=== PATIENT | male | born 1980 | race Caucasian/White ===

== ENCOUNTER 2018-11-24 16:07 | Emergency (ER) | payer SELFPAY ==
[2018-11-24 16:59] LABS: Absolute Lymphocytes (CBC) 1.6 K/uL (0.7-4.9); Absolute Monocytes 0.6 K/uL (0.1-1.3); Absolute Neutrophil 3.9 K/uL (1.8-8.0); Basophils % 0.8 % (0-1.3); Eosinophils % 1.1 % (0-4.4); Hematocrit 45.9 % (39.6-49.0); MPV 8.2 fL (7.6-11.3); Monocytes % 10.3 % (3.3-12.3); RBC Red Blood Cell Count 5.28 M/uL (4.33-5.43)
[2018-11-24] MEDS ORDERED: LORazepam 2 MG/ML VIAL ONE (17:03)
[2018-11-24 17:04] LABS: Protime INR 1.05
[2018-11-24] MEDS ORDERED: ONDANSETRON 4 MG/2 ML VIAL ONE (17:04)
[2018-11-24] MEDS ORDERED: FAMOTIDINE 20 MG/2 ML VIAL IV ONE (17:04)
[2018-11-24] MEDS ORDERED: NA CHLORIDE 0.9% 1,000 ML ONE (17:13)
--- NOTE | 2018-11-24 17:25 | RAD REPORT ---
EXAM DESCRIPTION: RAD - Chest Single View - 11/24/2018 5:18 pm CLINICAL HISTORY: DYSPNEA Chest pain. COMPARISON: <Comparisons> FINDINGS: Portable technique limits examination quality. The lungs are grossly clear. The heart is normal in size. Stent is present in the thoracic aorta. IMPRESSION: No acute intrathoracic process suspected.
[2018-11-24 17:44] LABS: ALT/SGPT 20 U/L (12-78); AST/SGOT 16 U/L (15-37); Albumin 4.2 g/dL (3.4-5.0); Alkaline Phosphatase 71 U/L (45-117); BUN Blood Urea Nitrogen 15 mg/dL (7-18); Bicarbonate 23 mmol/L (21-32); Bilirubin Direct 0.2 mg/dL (0-0.2); Bilirubin Total 0.5 mg/dL (0.2-1.0); Glucose Level 112 mg/dL (74-106); Lipase 183 U/L (73-393); Magnesium 2.4 mg/dL (1.8-2.4); NT PRO-BNP 20 pg/mL (<125); Potassium 3.3 mmol/L (3.5-5.1); Protein, Total 8.5 g/dL (6.4-8.2); Sodium Level 141 mmol/L (136-145); Troponin (Emerg Dept Use Only) < 0.02 ng/mL (0.0-0.045)
[2018-11-24 18:27] LABS: Urine Blood TRACE (NEG); Urine Glucose NEGATIVE (NEG); Urine Protein NEGATIVE (NEG); Urine Specific Gravity 1.025 (1.005-1.030); Urine pH 6.5 (5.0-7.0)
--- NOTE | 2018-11-24 18:31 | RAD REPORT ---
EXAM DESCRIPTION: CT - Angio Aorta For Dissection - 11/24/2018 6:18 pm CLINICAL HISTORY: Chest pain radiating to the back. SOB;Pain COMPARISON: <Comparisons> TECHNIQUE: CT angiography of the aorta was performed with MIPs. All CT scans are performed using dose optimization technique as appropriate and may include automated exposure control or mA/KV adjustment according to patient size. FINDINGS: A left aortic arch is present with normal branching pattern of the great vessels.No acute aortic finding is seen such as aneurysm, penetrating ulcer or dissection. Stent material is present i n the descending thoracic aorta without occlusion. Mild narrowing is seen of the distal descending th oracic aorta at the end of the stent. The celiac axis, SMA, HALIMA and renal arteries are widely patent . No evidence of pulmonary embolism. The lungs are clear. The liver demonstrates no focal mass or biliary dilatation.The spleen, pancreas, adrenal glands and k idneys are within normal limits for arterial phase imaging. No bowel obstruction, free fluid or abscess.No pathologic enlarged lymphadenopathy identified. No fracture or worrisome bone lesion seen. IMPRESSION: No acute aortic finding is demonstrated.
[2018-11-24 18:42] LABS: Barbiturates NEGATIVE (NEGATIVE); Benzodiazepines NEGATIVE (NEGATIVE); Cocaine NEGATIVE (NEGATIVE); METHAMPHETAM POSITIVE (NEGATIVE); Methadone NEGATIVE (NEGATIVE); Opiates NEGATIVE (NEGATIVE); Phencyclidine NEGATIVE (NEGATIVE); THC Cannibis NEGATIVE (NEGATIVE)
--- NOTE | 2018-11-24 18:44 | ER ---
Nurse's Notes [facility] Name: Segundo Barba Age: 38 yrs Sex: Male : 1980 Arrival Date: 11/24/2018 Time: 16:09 Bed 18 Private MD: Diagnosis: Dyspnea;Anxiety disorder, unspecified;Bipolar disorder;Hypokalemia;Adverse effect of amphetamines Presentation: 11/24 16:16 Presenting complaint: Patient states: "My mouth is dry and I feel like I can't breathe, hb I think someone tried to poison me." Denies recent alcohol or drug use, denies HI/SI. Transition of care: patient was not received from another setting of care. Onset of symptoms was November 24, 2018. Risk Assessment: Do you want to hurt yourself or someone else? Patient reports no desire to harm self or others. Care prior to arrival: None. 16:16 Method Of Arrival: Ambulatory 16:16 Acuity: INDU 2 hb 16:25 Initial Sepsis Screen: Does the patient meet any 2 criteria? No. Patient's initial rb1 sepsis screen is negative. Does the patient have a suspected source of infection? No. Patient's initial sepsis screen is negative. Triage Assessment: 16:25 Respiratory: Onset: The symptoms/episode began/occurred suddenly, the patient has mild rb1 shortness of breath. Historical: - Allergies: 16:18 No Known Allergies; hb - Home Meds: 16:18 Hydrochlorothiazide Oral [Active]; hb 16:18 Risperdal Oral [Active]; Effexor Oral [Active]; hb - PMHx: 16:18 Hypertension; hb 16:18 Bipolar disorder; hb - PSHx: 16:18 Heart stents; hb - Immunization history:: Adult Immunizations up to date. - Social history:: Smoking status: Patient uses tobacco products, smokes one-half pack cigarettes per day. - Ebola Screening: : No symptoms or risks identified at this time. Screenin:25 Abuse screen: Denies threats or abuse. Nutritional screening: No deficits noted. rb1 Tuberculosis screening: No symptoms or risk factors identified. Fall Risk None identified. Assessment: 16:25 General: Appears distressed, Behavior is anxious, Denies fever. Pain: Denies pain. rb1 Neuro: Level of Consciousness is awake, alert, obeys commands, Oriented to person, place, time, situation, Reports blurred vision. Cardiovascular: Rhythm is regular. Respiratory: Reports shortness of breath Airway is patent Respiratory effort is even, unlabored, Respiratory pattern is regular, symmetrical. GI: No signs and/or symptoms were reported involving the gastrointestinal system. : No signs and/or symptoms were reported regarding the genitourinary system. Derm: Skin is pink, warm \\T\\ dry. 16:25 General: Pt. believes someone poisoned a burrito that he had eaten.. rb1 16:25 Respiratory: Breath sounds are clear bilaterally. rb1 17:25 Reassessment: Patient appears in no apparent distress at this time. Patient and/or rb1 family updated on plan of care and expected duration. Pain level reassessed. Patient is alert, oriented x 3, equal unlabored respirations, skin warm/dry/pink. Family at bedside. 18:18 Reassessment: Patient appears in no apparent distress at this time. No changes from rb1 previously documented assessment. 19:02 Reassessment: Patient and/or family updated on plan of care and expected duration. Pain ea level reassessed. Patient is alert, oriented x 3, equal unlabored respirations, skin warm/dry/pink. Discharge instruction given to patient. verbalized the understanding of instruction. Pt left ED ambulatory with friend. Patient states feeling better. Vital Signs: 16:16 BP 155 / 101; Pulse 137; Resp 24; Temp 98.4; Pulse Ox 100% on R/A; Weight 82.55 kg; hb Height 5 ft. 11 in. (180.34 cm); Pain 5/10; 17:00 BP 147 / 101; Pulse 75; Resp 20; Temp 98.0(O); Pulse Ox 98% on R/A; mh5 18:17 BP 136 / 91; Pulse 70; Resp 20; Temp 97.8(O); Pulse Ox 98% on R/A; mh5 19:04 BP 129 / 82; Pulse 70; Resp 18; Pulse Ox 99% on R/A; ea 16:16 Body Mass Index 25.38 (82.55 kg, 180.34 cm) ED Course: 16:09 Patient arrived in ED. rg4 16:17 Triage completed. hb 16:17 Arm band placed on right wrist. hb 16:25 Keith Mehta MD is Attending Physician. allen 16:30 Irma Whitt, RN is Primary Nurse. rb1 16:42 Radiology exam delayed due to lab results not completed at this time. (BUN/Creatinine). sj 17:03 EKG done, by wheel alignment technician. reviewed by Keith Mehta MD. at1 17:18 XRAY Chest (1 view) In Process Unspecified. EDMS 17:56 Radiology exam delayed due to lab results not completed at this time. (BUN/Creatinine). vm2 18:14 Patient has correct armband on for positive identification. Bed in low position. Call 5 light in reach. Side rails up X 1. Adult w/ patient. Pulse ox on. NIBP on. 18:14 Urine Drug Screen Sent. 5 18:19 CT Aorta for Dissection In Process Unspecified. EDMS 18:43 Isaac Lam MD is Referral Physician. allen 19:03 No provider procedures requiring assistance completed. IV discontinued, intact, ea bleeding controlled, No redness/swelling at site. Pressure dressing applied. Administered Medications: 16:50 Drug: Pepcid 20 mg Route: IVP; Site: right antecubital; ae4 17:05 Follow up: Response: No adverse reaction rb1 16:50 Drug: Zofran 4 mg Route: IVP; Site: right antecubital; ae4 19:00 Follow up: Response: No adverse reaction ea 16:51 Drug: Ativan 1 mg Route: IVP; Site: right antecubital; ae4 17:05 Follow up: Response: No adverse reaction; Anxiety decreased rb1 17:01 Drug: NS 0.9% 1000 ml Route: IV; Rate: 1 bolus; Site: right antecubital; ae4 18:03 Follow up: IV Status: Completed infusion rb1 18:40 Drug: Potassium Effervescent Tablet 50 mEq Route: PO; rb1 19:00 Follow up: Response: No adverse reaction ea Outcome: 18:43 Discharge ordered by . allen 19:00 Discharged to home ambulatory, with friend. ea 19:00 Condition: stable 19:00 Discharge instructions given to patient, Instructed on discharge instructions, follow ea up and referral plans. medication usage, Demonstrated understanding of instructions, follow-up care, medications, Prescriptions given X 1. 19:04 Patient left the ED. ea Signatures: Dispatcher [employer] EDMS Tyson, MD MD allen Parker Susan sj Gonzales, Amanda, seamer operator EKG Tat1 Irma Whitt, RN RN rb1 Citlaly Valadez RN RN Sabine Crabtree 4 Blessing Connelly 5 Jeanette Low 2 Jemima Mix RN RN Damir Taylor RN RN ae4 Corrections: (The following items were deleted from the chart) 16:17 16:16 BP 155 / 101; Pulse 135bpm; Resp 24bpm; Pulse Ox 100% RA; Temp 98.4F; 82.55 kg; hb Height 5 ft. 11 in.; BMI: 25.3; Pain 5/10; hb 16:23 16:16 Presenting complaint: Patient states: "My mouth is dry and I feel like I can't hb breathe, I think someone tried to poison me." hb
--- NOTE | 2018-11-24 18:45 | EDPHYS ---
Physician Documentation [facility] Name: Segundo Barba Age: 38 yrs Sex: Male : 1980 Arrival Date: 11/24/2018 Time: 16:09 Bed 18 Private MD: ED Physician Keith Mehta HPI: 11/24 16:35 This 38 yrs old Male presents to ER via Ambulatory with complaints of Blurred allen Vision, Breathing Difficulty. 16:35 The patient has shortness of breath at rest, with light activity. Onset: The allen symptoms/episode began/occurred just prior to arrival. Duration: The symptoms are continuous, and are steadily getting worse. The patient's shortness of breath has no apparent modifying factors. Associated signs and symptoms: Pertinent positives: chest pain, dizziness, nausea. Severity of symptoms: At their worst the symptoms were moderate in the emergency department the symptoms are unchanged. The patient has not experienced similar symptoms in the past. Historical: - Allergies: 16:18 No Known Allergies; hb - Home Meds: 16:18 Hydrochlorothiazide Oral [Active]; hb 16:18 Risperdal Oral [Active]; Effexor Oral [Active]; hb - PMHx: 16:18 Hypertension; hb 16:18 Bipolar disorder; hb - PSHx: 16:18 Heart stents; hb - Immunization history:: Adult Immunizations up to date. - Social history:: Smoking status: Patient uses tobacco products, smokes one-half pack cigarettes per day. - Ebola Screening: : No symptoms or risks identified at this time. ROS: 16:36 Constitutional: Negative for fever, chills, and weight loss, Eyes: Negative for injury, allen pain, redness, and discharge, ENT: Negative for injury, pain, and discharge, Neck: Negative for injury, pain, and swelling, Abdomen/GI: Negative for abdominal pain, nausea, vomiting, diarrhea, and constipation, Back: Negative for injury and pain, : Negative for injury, bleeding, discharge, and swelling, MS/Extremity: Negative for injury and deformity, Skin: Negative for injury, rash, and discoloration, Neuro: Negative for headache, weakness, numbness, tingling, and seizure, Allergy/Immunology: Negative for hives, rash, and allergies, Endocrine: Negative for neck swelling, polydipsia, polyuria, polyphagia, and marked weight changes, Hematologic/Lymphatic: Negative for swollen nodes, abnormal bleeding, and unusual bruising. 16:36 Cardiovascular: Positive for chest pain. 16:36 Respiratory: Positive for cough, shortness of breath. 16:36 Neuro: Positive for dizziness, weakness. 16:36 Psych: Positive for anxiety. Exam: 16:36 Constitutional: This is a well developed, well nourished patient who is awake, alert, allen and in no acute distress. Head/Face: Normocephalic, atraumatic. Eyes: Pupils equal round and reactive to light, extra-ocular motions intact. Lids and lashes normal. Conjunctiva and sclera are non-icteric and not injected. Cornea within normal limits. Periorbital areas with no swelling, redness, or edema. ENT: Nares patent. No nasal discharge, no septal abnormalities noted. Tympanic membranes are normal and external auditory canals are clear. Oropharynx with no redness, swelling, or masses, exudates, or evidence of obstruction, uvula midline. Mucous membranes moist. Neck: Trachea midline, no thyromegaly or masses palpated, and no cervical lymphadenopathy. Supple, full range of motion without nuchal rigidity, or vertebral point tenderness. No Meningismus. Chest/axilla: Normal chest wall appearance and motion. Nontender with no deformity. No lesions are appreciated. Respiratory: Lungs have equal breath sounds bilaterally, clear to auscultation and percussion. No rales, rhonchi or wheezes noted. No increased work of breathing, no retractions or nasal flaring. Abdomen/GI: Soft, non-tender, with normal bowel sounds. No distension or tympany. No guarding or rebound. No evidence of tenderness throughout. Back: No spinal tenderness. No costovertebral tenderness. Full range of motion. Male : Normal genitalia with no discharge or lesions. Skin: Warm, dry with normal turgor. Normal color with no rashes, no lesions, and no evidence of cellulitis. MS/ Extremity: Pulses equal, no cyanosis. Neurovascular intact. Full, normal range of motion. Neuro: Awake and alert, GCS 15, oriented to person, place, time, and situation. Cranial nerves II-XII grossly intact. Motor strength 5/5 in all extremities. Sensory grossly intact. Cerebellar exam normal. Normal gait. 16:36 Cardiovascular: Rate: tachycardic, Rhythm: regular, Pulses: Pulses are 4+ in bilateral radial, brachial, femoral, popliteal, posterior tibial and and dorsalis pedis arteries.. Heart sounds: normal, Edema: is not appreciated, JVD: is not appreciated. 16:36 Respiratory: the patient does not display signs of respiratory distress, Respirations: no acute changes, Breath sounds: are clear throughout, no bronchial sounds, no decreased breath sounds, no rales, rhonchi, no stridor, no wheezing, no acute changes, throughout. 16:36 Abdomen/GI: Inspection: abdomen appears normal, distension. Vital Signs: 16:16 BP 155 / 101; Pulse 137; Resp 24; Temp 98.4; Pulse Ox 100% on R/A; Weight 82.55 kg; hb Height 5 ft. 11 in. (180.34 cm); Pain 5/10; 17:00 BP 147 / 101; Pulse 75; Resp 20; Temp 98.0(O); Pulse Ox 98% on R/A; mh5 18:17 BP 136 / 91; Pulse 70; Resp 20; Temp 97.8(O); Pulse Ox 98% on R/A; mh5 19:04 BP 129 / 82; Pulse 70; Resp 18; Pulse Ox 99% on R/A; ea 16:16 Body Mass Index 25.38 (82.55 kg, 180.34 cm) hb MDM: 16:25 Patient medically screened. [facility] 16:38 Data reviewed: vital signs, nurses notes, lab test result(s), EKG, radiologic studies, [facility] CT scan, plain films. 11/24 16:34 Order name: Basic Metabolic Panel; Complete Time: 17:59 [facility] 11/24 16:34 Order name: CBC with Diff; Complete Time: 17:31 [facility] 11/24 16:34 Order name: LFT's; Complete Time: 17:59 [facility] 11/24 16:34 Order name: Magnesium; Complete Time: 17:59 [facility] 11/24 16:34 Order name: NT PRO-BNP; Complete Time: 17:59 [facility] 11/24 16:34 Order name: PT-INR; Complete Time: 17:31 [facility] 11/24 16:34 Order name: Troponin (emerg Dept Use Only); Complete Time: 17:59 [facility] 11/24 16:34 Order name: Acetaminophen; Complete Time: 17:59 [facility] 11/24 16:34 Order name: ETOH Level; Complete Time: 17:31 [facility] 11/24 16:34 Order name: Ptt, Activated; Complete Time: 17:31 [facility] 11/24 16:34 Order name: Salicylate; Complete Time: 17:59 [facility] 11/24 16:34 Order name: Urine Drug Screen [facility] 11/24 16:34 Order name: Lipase; Complete Time: 17:59 [facility] 11/24 18:20 Order name: Urine Dipstick--Ancillary (enter results); Complete Time: 18:42 11/24 16:34 Order name: XRAY Chest (1 view); Complete Time: 17:31 [facility] 11/24 16:34 Order name: EKG; Complete Time: 16:35 [facility] 11/24 16:34 Order name: Cardiac monitoring; Complete Time: 17:02 [facility] 11/24 16:34 Order name: EKG - Nurse/Tech; Complete Time: 17:02 [facility] 11/24 16:34 Order name: IV Saline Lock; Complete Time: 17:02 [facility] 11/24 16:34 Order name: Labs collected and sent; Complete Time: 17:02 [facility] 11/24 16:34 Order name: O2 Per Protocol; Complete Time: 17:02 [facility] 11/24 16:34 Order name: O2 Sat Monitoring; Complete Time: 17:02 [facility] 11/24 16:34 Order name: Urine Dipstick-Ancillary (obtain specimen); Complete Time: 18:14 [facility] 11/24 16:35 Order name: CT Aorta for Dissection; Complete Time: 18:42 [facility] Administered Medications: 16:50 Drug: Pepcid 20 mg Route: IVP; Site: right antecubital; ae4 17:05 Follow up: Response: No adverse reaction rb1 16:50 Drug: Zofran 4 mg Route: IVP; Site: right antecubital; ae4 19:00 Follow up: Response: No adverse reaction ea 16:51 Drug: Ativan 1 mg Route: IVP; Site: right antecubital; ae4 17:05 Follow up: Response: No adverse reaction; Anxiety decreased rb1 17:01 Drug: NS 0.9% 1000 ml Route: IV; Rate: 1 bolus; Site: right antecubital; ae4 18:03 Follow up: IV Status: Completed infusion rb1 18:40 Drug: Potassium Effervescent Tablet 50 mEq Route: PO; rb1 19:00 Follow up: Response: No adverse reaction ea Disposition: 11/24/18 18:43 Discharged to Home. Impression: Dyspnea, Anxiety disorder, unspecified, Bipolar disorder, Hypokalemia, Adverse effect of amphetamines. - Condition is Stable. - Discharge Instructions: Stimulant Use Disorder-Amphetamines, Panic Attacks, Potassium Content of Foods, Bipolar Disorder, Shortness of Breath, [id number], Stimulant Use Disorder-Methamphetamines, Panic Attacks, [id number], Hypokalemia. - Prescriptions for Benadryl 25 mg Oral Capsule - take 1 capsule by ORAL route every 6 hours As needed; 30 tablet. - Medication Reconciliation Form, Thank You Letter, Antibiotic Education, Prescription Opioid Use form. - Follow up: Private Physician; When: 2 - 3 days; Reason: Recheck today's complaints, Continuance of care, Re-evaluation by your physician. Follow up: Isaac Lam; When: 2 - 3 days; Reason: Recheck today's complaints, Re-evaluation by your physician. - Problem is new. - Symptoms have improved. Signatures: Dispatcher [employer] EDMS Keith Mehta MD MD cha Barber, Rebecca, RN RN rb1 Citlaly Valadez RN RN hb Antunez, Elena, RN RN ea Elliott, Andrea, RN RN ae4 Corrections: (The following items were deleted from the chart) 19:04 18:43 11/24/2018 18:43 Discharged to Home. Impression: Dyspnea; Anxiety disorder, ea unspecified; Bipolar disorder; Hypokalemia; Adverse effect of amphetamines. Condition is Stable. Discharge Instructions: Panic Attacks, Potassium Content of Foods, Bipolar Disorder, Shortness of Breath, [id number], Panic Attacks, Ufya-[id number], Hypokalemia. Prescriptions for Benadryl 25 mg Oral Capsule - take 1 capsule by ORAL route every 6 hours As needed; 30 tablet. and Forms are Medication Reconciliation Form, Thank You Letter, Antibiotic Education, Prescription Opioid Use. Follow up: Private Physician; When: 2 - 3 days; Reason: Recheck today's complaints, Continuance of care, Re-evaluation by your physician. Follow up: Isaac Lam; When: 2 - 3 days; Reason: Recheck today's complaints, Re-evaluation by your physician. Problem is new. Symptoms have improved. allen
[2018-11-24] MEDS ORDERED: POTASSIUM 25 MEQ EFFERV TAB ONE (18:48)
--- NOTE | 2018-11-25 07:32 | EKG ---
Test Date: 2018-11-24 Test Time: 17:00:11 Hosiery Operator: PALOMO MEASUREMENT RESULTS: Intervals: Rate: 90 MD: 106 QRSD: 86 QT: 370 QTc: 452 Ursa: P: 14 MD: 106 QRS: -14 T: 57 INTERPRETIVE STATEMENTS: Sinus rhythm with short MD Otherwise normal ECG Compared to ECG 05/14/2011 20:57:32 Short MD interval now present Electronically Signed On 11-25-18 07:31:11 CDT by Patricio Cooper
== END 2018-11-24 19:04 | disposition home or self-care (01) ==
LOC: ER 16:07
DX: F41.9 Anxiety disorder, unspecified (principal); F31.9 Bipolar disorder, unspecified; E87.6 Hypokalemia; T43.625A Adverse effect of amphetamines, initial encounter; I10 Essential (primary) hypertension; F17.210 Nicotine dependence, cigarettes, uncomplicated; Z95.818 Presence of other cardiac implants and grafts
CPT/HCPCS: 36415; 71045; 71275; 74175; 80048; 80076; 80307; 80320; 80329; 81003; 83690; 83735; 83880; 84484; 85025; 85610; 85730; 93005; 96361; 96374; 96375; 99284; J2405; J7030; Q9967